=== PATIENT | male | born 1955 | race Caucasian/White ===

== ENCOUNTER 2018-01-08 21:58 | Emergency (ER) | payer BC ==
[2018-01-08] MEDS ORDERED: Ondansetron ODT TAB* 4 MG PO ONE (22:09)
[2018-01-08] MEDS ORDERED: HYDROcodone/ACETAMIN 5-325 MG* 1 TAB PO ONE (22:09)
--- NOTE | 2018-01-08 22:15 | UC ---
Upper Extremity HPI - HPI Summary HPI Summary: pt presented for evaluation of his right thumb. he smashed it between a trailer and a block of wood. he denies any loc. he took tylenol for pain. he presents to the with his . while he was here he states that he felt light headed due to pain. he denies any other injuries. pt states his td is utd. - History of Current Complaint Stated Complaint: PAIN RIGHT THUMB Hx Obtained From: Patient, Family/Motorcycle Maker ?: No Onset/Duration: Sudden Onset Severity Initially: Moderate Severity Currently: Moderate Pain Scale Used: 0-10 Numeric - 10 Character: Sharp Aggravating Factor(s): Movement Alleviating Factor(s): Nothing Associated Signs And Symptoms: Positive: Swelling, Redness, Bruising - Allergies/Home Medications Allergies/Adverse Reactions: Allergies Allergy/AdvReac Type Severity Reaction Status Date / Time ibuprofen Allergy Rash and Verified 01/08/18 22:10 Cold Symptoms Home Medications: Home Medications Acetaminophen TAB* [Tylenol TAB*] 650 - 1,000 mg PO Q6H PRN 01/08/18 [History Confirmed 01/08/18] Amlodipine Besylate/Benazepril [Amlodipine Besylate/Benaz 5-40 mg-] 1 cap PO DAILY 01/08/18 [History Confirmed 01/08/18] PMH/Surg Hx/FS Hx/Imm Hx Previously Healthy: Yes Review of Systems Constitutional: Negative Skin: Bruising Eyes: Negative ENT: Negative Respiratory: Negative Cardiovascular: Negative Gastrointestinal: Nausea Motor: Decreased ROM - right thumb Neurovascular: Negative Neurological: Negative Psychological: Negative All Other Systems Reviewed And Are Negative: No Physical Exam Triage Information Reviewed: Yes Appearance: Pain Distress Vital Signs Reviewed: Yes Eye Exam: Normal Eyes: Positive: Conjunctiva Clear ENT Exam: Normal ENT: Positive: Normal ENT inspection, Hearing grossly normal, Pharynx normal Neck exam: Normal Neck: Positive: Supple, Nontender Respiratory: Positive: Chest non-tender, Lungs clear, Normal breath sounds Cardiovascular: Positive: RRR, No Murmur Abdomen Description: Positive: Nontender, Soft Bowel Sounds: Positive: Present Musculoskeletal: Positive: Strength Intact, ROM Intact Neurological Exam: Normal Neurological: Positive: Alert Psychological Exam: Normal Skin Exam: Other - bruising to distal right thumb Upper Extremity Course/Dx - Course Course Of Treatment: xray of right thumb shows no obvious fracture. pt self trephinated his nail x3. he still has mild persistent pain. he did not use sterile technique. I gave pt first dose of abx, keflex, in the uc. i sent a rx to the pharmacy on file. pt should follow up with pcp by Friday. pt encouraged to take tyelnol every 4-6 hours for pain. a splint placed to right thumb for support and to protect the thumb. I informed pt that radiology will read the xray in the morning. if they see a fracture, we will call him. the patient and are comfortable with the plan. - Differential Dx/Diagnosis Differential Diagnosis/HQI/PQRI: Other - subungal hematoma to right thumb nail. he has 3 small circular puncture wounds to the base of the right thumb nail Provider Diagnoses: subungal hematoma, finger soft tissue injury Discharge - Sign-Out/Discharge Documenting (check all that apply): Patient Departure All imaging exams completed and their final reports reviewed: Yes - Discharge Plan Condition: Stable Disposition: HOME Prescriptions: Cephalexin CAP* [Keflex CAP*] 500 mg PO TID #15 cap MDD 3 Patient Education Materials: Subungual Hematoma (ED) Referrals: Gio Galloway DO [Primary Care Provider] - Additional Instructions: take tylenol every 4-6 hours for pain. return if worse or any new symptoms Wear the splint as instructed. it is important to follow up with your primary care physician by Friday. - Billing Disposition and Condition Condition: STABLE Disposition: Home
[2018-01-08] MEDS ORDERED: Cephalexin CAP* 500 MG PO ONE (22:29)
--- NOTE | 2018-01-09 08:07 | RAD ---
Indication: Right thumb injury. 4 views of the right thumb reviewed. There is no fracture noted. There is ulnar positive variance with suggestion of ulnar impaction. Degenerative changes of the fourth metacarpal phalangeal joint is noted. Degenerative changes of the distal third interphalangeal joint is also present. No fracture is noted. IMPRESSION: No fracture of the hand or right thumb is noted. [id number]
== END 2018-01-08 22:40 | disposition home or self-care (01) ==
LOC: UCCORT 21:58
DX: S60.111A Contusion of right thumb with damage to nail, initial encounter (principal); W23.0XXA Caught, crushed, jammed, or pinched between moving objects, initial encounter; Y92.9 Unspecified place or not applicable
CPT/HCPCS: 99202; A9270-GY; G0463